=== PATIENT | male | born 1970 | race Caucasian/White ===

== ENCOUNTER 2025-08-15 06:16 | Day surgery (SDC) | payer OTHER, SELFPAY | END 2025-08-15 14:44 | disposition home or self-care (01) | LOC: GI 06:16 | PROVIDERS: ATTENDING PHYSICIAN Internal Medicine Gastroenterology; FAMILY PHYSICIAN Student in an Organized Health Care Education/Training Program | DX: Z12.11 Encounter for screening for malignant neoplasm of colon (principal); K64.8 Other hemorrhoids; K57.30 Diverticulosis of large intestine without perforation or abscess without bleeding | CPT/HCPCS: G0121 ==